=== PATIENT | male | born 1950 | race Caucasian/White ===

== ENCOUNTER 2018-02-06 16:03 | Observation (INO) | payer OTHER ==
[~2018-02-06 16:03] MED LIST: ISOVUE-370 76%-LOCM 1 ML ONE; Ketorolac Tromethamine 30 MG/ML VIAL ONE; Lidocaine 1% PF 5 ML VIAL ONE; PHENYLEPHRINE-NS 100 MCG/ML 10 ML SYRINGE ONE; PROPOFOL 200 MG/20 ML VIAL ONE; Succinylcholine Chloride 20 MG/ML 10 ml SYRINGE FS ONE; ePHEDrine/0.9% NaCl/PF SYRINGE 50 mg/10 ml ONE
[2018-02-06] MEDS ORDERED: CEFAZOLIN/Water 2 GM/20 ML SYRINGE ONE (16:15)
[2018-02-06] MEDS ORDERED: Adacel (T-DAP) 0.5 ML VIAL ONE (16:15)
[2018-02-06 16:21] LABS: #Basophils 0.1 thou/uL (0.0-0.2); #Eosinphils 0.2 thou/uL (0.0-0.7); #Monocytes 0.8 thou/uL (0.11-0.59); #Neutrophils 3.7 thou/uL (1.40-6.50); %Basophils 1.2 % (0.0-1.0); %Eosinophils 3.8 % (0.0-10.0); %Lymphocytes 17.1 % (21.0-51.0); %Monocytes 13.5 % (0.0-10.0); %Neutrophils 64.4 % (42.0-75.0); Hemoglobin 14.1 g/dL (14.0-18.0); Mean Corpuscular HGB CONC 32.5 g/dL (32.0-36.0); Mean Corpuscular Hemoglobin 30.4 pg (27.0-31.0); Mean Corpuscular Volume 93.4 fl (80.0-94.0); Mean Platelet Volume 9.1 fL (7.4-10.4); Platelet Count 98 thou/uL (130-400); RBC Distribution Width 14.4 % (11.5-14.5); Red Blood Cell (RBC) Count 4.65 mill/uL (4.70-6.10); White Blood Cell (WBC) Count 5.7 thou/uL (4.8-10.8)
[2018-02-06 16:26] LABS: INR-International Normal Ratio 1.3; Prothrombin Time 16.2 SEC (12.0-14.7)
[2018-02-06 16:27] LABS: PTT 35.4 SEC (22.9-36.1)
[2018-02-06 16:31] LABS: ALT (SGPT) 27 U/L (8-55); AST (SGOT) 29 U/L (5-34); Albumin 3.6 g/dL (3.4-4.8); Alcohol Less than 10 mg/dL (Less than 10); Alkaline Phosphatase 101 U/L (40-150); Anion Gap 10 mmol/L (10-20); BUN (Urea Nitrogen) 16 mg/dL (8.4-25.7); Calc. Creatinine Clearance 0 mL/min (70-130); Calcium 9.2 mg/dL (7.8-10.44); Carbon Dioxide 23 mmol/L (23-31); Chloride 107 mmol/L (98-107); Estimated GFR-MDRD 85; Globulin 3.4 g/dL (2.4-3.5); Glucose 133 mg/dL (80-115); Large Platelets SLIGHT; MDiff Complete? YES; PLT Morphology Comment Appears Decreased; Potassium 3.5 mmol/L (3.5-5.1); RBC Morphology Normal; Sodium 136 mmol/L (136-145)
[2018-02-06] MEDS ORDERED: Lidocaine 1% w/Epinephrine 1:100K 20 ML VIAL ONE (16:36)
[2018-02-06] MEDS ORDERED: Lidocaine 1% PF 5 ML VIAL ONE (16:36)
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
[2018-02-06] MEDS ORDERED: Ketorolac Tromethamine 30 MG/ML VIAL ONE (17:49)
[2018-02-06] MEDS ORDERED: Bacitracin Zinc Ointment 30 gm TUBE ONE (17:52)
[2018-02-06] MEDS ORDERED: Bupivacaine PF 0.5% 30 ML VIAL ONE (17:52)
[2018-02-06] MEDS ORDERED: Betamet Acet/Betamet Na Ph 30 MG/5 ML VIAL ONE (17:52)
[2018-02-06] MEDS ORDERED: Fentanyl 100 MCG/2 ML VIAL ONE ×2 (17:57→20:04)
[2018-02-06] MEDS ORDERED: Sodium Chloride 0.9% 30 ML ONE (18:05)
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
[2018-02-06] MEDS ORDERED: Thrombin 5000 UNITS/5 ML VIAL ONE (20:02)
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
[2018-02-06] MEDS ORDERED: Promethazine HCl 25 MG/ML VIAL IM PRN (21:59)
[2018-02-06] MEDS ORDERED: Promethazine HCl 25 MG/ML VIAL SLOW IVP PRN (21:59)
[2018-02-06] MEDS ORDERED: Ondansetron HCl/PF 4 MG/2 ML Vial IVP PRN (21:59)
[2018-02-06] MEDS ORDERED: Morphine 4 MG/ML VIAL SLOW IVP PRN (22:45)
[2018-02-06] MEDS ORDERED: hydrALAZINE 20 MG/ML VIAL SLOW IVP PRN (22:54)
[2018-02-06] MEDS ORDERED: Dextrose 5% in Water 1,000 ML IV PRN (22:54)
[2018-02-06] MEDS ORDERED: Ondansetron ODT 4 MG TAB PO PRN (22:54)
[2018-02-06] MEDS ORDERED: Dextrose 50% Abboject 50 ML SYRINGE SLOW IVP PRN (22:54)
[2018-02-06 23:11] VITALS: BMI 23.9
[2018-02-06] MEDS: Sodium Chloride 0.9% 1,000 ML IV SCH (23:41)
[2018-02-06] MEDS: Acetaminophen 500 MG TAB PO SCH (23:42)
[2018-02-06] MEDS: Ibuprofen 600 MG TAB PO SCH (23:42)
[2018-02-06] MEDS: traMADol HCl 50 MG TAB PO SCH (23:43)
[2018-02-06] MEDS: Ketorolac Tromethamine 30 MG/ML VIAL IVP SCH (23:43)
[2018-02-06] MEDS ORDERED: CEFAZOLIN 1 GM, Syringe 2.5 ML in Sterile Water 7.5 ML SLOW IVP SCH (23:59)
[2018-02-07 04:47] LABS: #Basophils 0.1 thou/uL (0.0-0.2); #Eosinphils 0.1 thou/uL (0.0-0.7); #Lymphocytes 1.1 thou/uL (1.20-3.40); #Monocytes 0.7 thou/uL (0.11-0.59); #Neutrophils 6.4 thou/uL (1.40-6.50); %Basophils 0.9 % (0.0-1.0); %Eosinophils 0.9 % (0.0-10.0); %Lymphocytes 13.1 % (21.0-51.0); %Monocytes 8.5 % (0.0-10.0); %Neutrophils 76.7 % (42.0-75.0); Hemoglobin 12.2 g/dL (14.0-18.0); Mean Corpuscular HGB CONC 32.8 g/dL (32.0-36.0); Mean Corpuscular Volume 94.5 fl (80.0-94.0); Mean Platelet Volume 9.3 fL (7.4-10.4); Platelet Count 73 thou/uL (130-400); RBC Distribution Width 14.5 % (11.5-14.5); Red Blood Cell (RBC) Count 3.94 mill/uL (4.70-6.10); White Blood Cell (WBC) Count 8.3 thou/uL (4.8-10.8)
[2018-02-07 04:55] LABS: Anion Gap 12 mmol/L (10-20); BUN (Urea Nitrogen) 17 mg/dL (8.4-25.7); Calc. Creatinine Clearance 92 mL/min (70-130); Calcium 8.2 mg/dL (7.8-10.44); Carbon Dioxide 21 mmol/L (23-31); Chloride 107 mmol/L (98-107); Estimated GFR-MDRD 82; Glucose 149 mg/dL (80-115); Magnesium 1.7 mg/dL (1.6-2.6); Phosphorus 3.2 mg/dL (2.3-4.7); Potassium 3.6 mmol/L (3.5-5.1); Sodium 136 mmol/L (136-145)
[2018-02-07] MEDS ORDERED: CEFAZOLIN 1 GM in Sodium Chloride 0.9% 100 ML IVPB SCH (06:00)
[2018-02-07] MEDS: Ketorolac Tromethamine 30 MG/ML VIAL IVP SCH ×2 (06:14→11:26)
[2018-02-07] MEDS: Ibuprofen 600 MG TAB PO SCH ×3 (06:14→18:47)
[2018-02-07] MEDS: Acetaminophen 500 MG TAB PO SCH ×3 (06:14→18:44)
[2018-02-07] MEDS: traMADol HCl 50 MG TAB PO SCH ×3 (08:16→18:47)
[2018-02-07] MEDS: Sodium Chloride 0.9% 1,000 ML IV SCH ×2 (08:16→08:59)
[2018-02-07] MEDS ORDERED: Famotidine 20 MG TAB PO SCH (09:00)
[2018-02-07] MEDS ORDERED: Furosemide 40 MG TAB PO SCH ×2 (13:04→13:15)
[2018-02-07] MEDS ORDERED: Potassium Chloride 20 MEQ TAB PO SCH (13:15)
[2018-02-07] MEDS ORDERED: Spironolactone 100 MG TAB PO SCH ×2 (13:15→13:30)
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
[2018-02-07 15:37] VITALS: BP 94/56; TEMP 98.5
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
[2018-02-07] MEDS ORDERED: Propranolol 10 MG TAB PO SCH ×2 (21:00)
[2018-02-08] MEDS ORDERED: Furosemide 40 MG TAB PO SCH (09:00)
[2018-02-08] MEDS ORDERED: Spironolactone 100 MG TAB PO SCH (09:00)
== END 2018-02-07 19:40 | disposition home or self-care (01) ==
LOC: ERS 16:03 → SDC 17:53 → SURG B 18:19
PROVIDERS: ADMIT Surgery; ATTEND Surgery
PROC: 0KQJ0ZZ Repair Left Thorax Muscle, Open Approach (ICD-10-PCS; principal; 2018-02-06)
PROC: 0KQB0ZZ Repair Left Lower Arm and Wrist Muscle, Open Approach (ICD-10-PCS; 2018-02-06)
PROC: 0PBJ0ZZ Excision of Left Radius, Open Approach (ICD-10-PCS; 2018-02-06)
DX: S31.114A Laceration without foreign body of abdominal wall, left lower quadrant without penetration into peritoneal cavity, initial encounter (principal); S51.812A Laceration without foreign body of left forearm, initial encounter; S52.92XB Unspecified fracture of left forearm, initial encounter for open fracture type I or II; K74.60 Unspecified cirrhosis of liver; F17.210 Nicotine dependence, cigarettes, uncomplicated; F14.90 Cocaine use, unspecified, uncomplicated; Z79.899 Other long term (current) drug therapy; Z98.890 Other specified postprocedural states; X99.1XXA Assault by knife, initial encounter; Y92.002 Bathroom of unspecified non-institutional (private) residence as the place of occurrence of the external cause
CPT/HCPCS: 12004; 36415; 71045; 71260; 74177; 80048; 80053; 80307; 83605; 83735; 84100; 85025; 85610; 85730; 86850; 86900; 86901; 90471; 90715; 94640; 96361; 96365; 96366; 96374; 96375; 96376; 99292; A4216; G0378; G0390; J0690; J0702; J1885; J2001; J2270; J2704; J3010; J3490; S0020

== ENCOUNTER 2018-02-16 12:50 | Inpatient (IN) | payer OTHER ==
[~2018-02-16 12:50] MED LIST changes: -ISOVUE-370 76%-LOCM 1 ML ONE; -PHENYLEPHRINE-NS 100 MCG/ML 10 ML SYRINGE ONE; -Succinylcholine Chloride 20 MG/ML 10 ml SYRINGE FS ONE; -ePHEDrine/0.9% NaCl/PF SYRINGE 50 mg/10 ml ONE
[2018-02-16] MEDS ORDERED: Morphine 4 MG/ML Carpuject IVP PRN (13:24)
[2018-02-16] MEDS ORDERED: Ondansetron HCl/PF 4 MG/2 ML Vial IVP PRN ×2 (13:24→19:07)
[2018-02-16] MEDS ORDERED: Ondansetron ODT 4 MG TAB PO PRN (13:24)
[2018-02-16] MEDS ORDERED: Dextrose 5% in Water 1,000 ML IV PRN (13:24)
[2018-02-16] MEDS ORDERED: Dextrose 50% Abboject 50 ML SYRINGE SLOW IVP PRN (13:24)
[2018-02-16] MEDS ORDERED: Morphine 4 MG/ML VIAL IV PRN (13:25)
[2018-02-16] MEDS ORDERED: Sodium Chloride 0.9% 1,000 ML IV SCH (13:30)
[2018-02-16] MEDS ORDERED: Sodium Chloride 0.9% 500 ML IV SCH (13:45)
[2018-02-16 13:51] LABS: #Basophils 0.1 thou/uL (0.0-0.2); #Eosinphils 0.2 thou/uL (0.0-0.7); #Lymphocytes 1.1 thou/uL (1.20-3.40); #Monocytes 0.7 thou/uL (0.11-0.59); #Neutrophils 3.4 thou/uL (1.40-6.50); %Lymphocytes 20.1 % (21.0-51.0); %Monocytes 12.5 % (0.0-10.0); %Neutrophils 63.3 % (42.0-75.0); Hemoglobin 11.7 g/dL (14.0-18.0); Mean Corpuscular Hemoglobin 31.6 pg (27.0-31.0); Mean Corpuscular Volume 92.9 fl (80.0-94.0); Mean Platelet Volume 7.5 fL (7.4-10.4); Platelet Count 101 thou/uL (130-400); RBC Distribution Width 14.1 % (11.5-14.5); Red Blood Cell (RBC) Count 3.71 mill/uL (4.70-6.10); White Blood Cell (WBC) Count 5.4 thou/uL (4.8-10.8)
[2018-02-16] MEDS: Lactated Ringer's 1,000 ML IV SCH ×2 (13:52→20:04)
[2018-02-16 14:12] LABS: Anion Gap 8 mmol/L (10-20); BUN (Urea Nitrogen) 18 mg/dL (8.4-25.7); Calc. Creatinine Clearance 0 mL/min (70-130); Carbon Dioxide 25 mmol/L (23-31); Chloride 107 mmol/L (98-107); Estimated GFR-MDRD Greater than 90; Glucose 89 mg/dL (80-115); Magnesium 1.8 mg/dL (1.6-2.6); Potassium 3.9 mmol/L (3.5-5.1); Sodium 136 mmol/L (136-145)
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
[2018-02-16 16:18] VITALS: BMI 23.6
[2018-02-16] MEDS ORDERED: Midazolam HCl 2 mg/2 ml Vial ONE (17:41)
[2018-02-16] MEDS ORDERED: Fentanyl 100 MCG/2 ML VIAL ONE ×3 (17:42→19:18)
[2018-02-16] MEDS ORDERED: CEFAZOLIN/Water 2 GM/20 ML SYRINGE ONE (17:50)
[2018-02-16] MEDS ORDERED: Bacitracin Zinc Ointment 30 gm TUBE ONE (18:38)
[2018-02-16] MEDS ORDERED: HYDROmorphone 0.5 MG/0.5 ML SYRINGE ONE (18:40)
[2018-02-16] MEDS ORDERED: Promethazine HCl 25 MG/ML VIAL IM PRN (19:07)
[2018-02-16] MEDS ORDERED: Promethazine HCl 25 MG/ML VIAL SLOW IVP PRN (19:07)
[2018-02-16] MEDS: Famotidine 20 MG TAB PO SCH (20:03)
[2018-02-16] MEDS: Morphine 4 MG/ML VIAL SLOW IVP PRN (20:03)
[2018-02-16] MEDS ORDERED: Prevnar 13-Val Conj/PF 0.5 ML SYRINGE IM ONE (21:00)
[2018-02-17] MEDS: Morphine 4 MG/ML VIAL SLOW IVP PRN ×3 (00:40→10:11)
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
[2018-02-17 04:47] LABS: #Eosinphils 0.2 thou/uL (0.0-0.7); #Lymphocytes 0.9 thou/uL (1.20-3.40); #Monocytes 0.9 thou/uL (0.11-0.59); #Neutrophils 4.1 thou/uL (1.40-6.50); %Basophils 0.8 % (0.0-1.0); %Eosinophils 2.7 % (0.0-10.0); %Lymphocytes 15.1 % (21.0-51.0); %Monocytes 14.3 % (0.0-10.0); Hemoglobin 12.1 g/dL (14.0-18.0); Mean Corpuscular HGB CONC 33.5 g/dL (32.0-36.0); Mean Corpuscular Hemoglobin 31.9 pg (27.0-31.0); Mean Corpuscular Volume 95.2 fl (80.0-94.0); Mean Platelet Volume 8.8 fL (7.4-10.4); Platelet Count 96 thou/uL (130-400); RBC Distribution Width 14.3 % (11.5-14.5); Red Blood Cell (RBC) Count 3.79 mill/uL (4.70-6.10); White Blood Cell (WBC) Count 6.1 thou/uL (4.8-10.8)
[2018-02-17 04:57] LABS: Anion Gap 11 mmol/L (10-20); BUN (Urea Nitrogen) 20 mg/dL (8.4-25.7); Calc. Creatinine Clearance 91 mL/min (70-130); Calcium 8.9 mg/dL (7.8-10.44); Carbon Dioxide 25 mmol/L (23-31); Chloride 104 mmol/L (98-107); Estimated GFR-MDRD 80; Glucose 122 mg/dL (80-115); Phosphorus 4.2 mg/dL (2.3-4.7); Potassium 3.9 mmol/L (3.5-5.1); Sodium 136 mmol/L (136-145)
[2018-02-17] MEDS ORDERED: traMADol HCl 50 MG TAB PO PRN ×2 (07:43→07:44)
[2018-02-17] MEDS ORDERED: Pantoprazole 40 MG VIAL IVP SCH (09:00)
[2018-02-17] MEDS: Famotidine 20 MG TAB PO SCH (09:01)
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
[2018-02-17] MEDS: Lactated Ringer's 1,000 ML IV SCH (09:15)
[2018-02-17] MEDS ORDERED: Acetaminophen 500 MG TAB PO SCH (12:00)
[2018-02-17] MEDS ORDERED: Ibuprofen 600 MG TAB PO SCH (14:00)
[2018-02-17 16:00] VITALS: BP 105/63; TEMP 97.8
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
== END 2018-02-17 15:55 | disposition home or self-care (01) | DRG 941 ==
LOC: SURG A 12:50
PROVIDERS: ADMIT Surgery; ATTEND Surgery
PROC: 0JQ80ZZ Repair Abdomen Subcutaneous Tissue and Fascia, Open Approach (ICD-10-PCS; principal; 2018-02-16)
DX: S31.61 Laceration without foreign body of abdominal wall with penetration into peritoneal cavity (principal); W26.9XXD Contact with unspecified sharp object(s), subsequent encounter; F17.210 Nicotine dependence, cigarettes, uncomplicated; G89.11 Acute pain due to trauma; K70.30 Alcoholic cirrhosis of liver without ascites
CPT/HCPCS: 36415; 71046; 80048; 83735; 84100; 85025; C9113; J1170; J1885; J2001; J2250; J2270; J2704; J3010